=== PATIENT | male | born 1935 | race Hispanic/Latino ===

== ENCOUNTER 2018-05-15 16:06 | Emergency (ER) | payer BC, MEDICARE ==
[2018-05-15 16:15] VITALS: RESP 20
[2018-05-15 17:59] LABS: BASO % 0.6 % (0.0-2.0); EOS # 0.1 K/uL (0.0-0.7); EOS % 1.5 % (0.0-4.0); HEMOGLOBIN 13.7 g/dL (12.0-18.0); LYMPH # 2.4 K/uL (1.0-4.3); LYMPH % 32.9 % (20.0-40.0); MEAN CELL VOLUME 86.8 fL (80.0-94.0); MEAN CORPUSCULAR HEMOGLOBIN 29.7 pg (27.0-31.0); MEAN CORPUSCULAR HGB CONC 34.2 g/dL (33.0-37.0); MEAN PLATELET VOLUME 9.1 fL (7.2-11.7); MONO # 0.6 K/uL (0.0-0.8); MONO % 8.2 % (0.0-10.0); NEUT # 4.1 K/uL (1.8-7.0); NEUT % 56.8 % (50.0-75.0); RBC 4.62 Mil/uL (4.40-5.90); RED CELL DISTRIBUTION WIDTH 13.8 % (11.5-14.5); WHITE BLOOD COUNT 7.3 K/uL (4.8-10.8)
[2018-05-15 18:07] LABS: URINE BACTERIA OCC (<OCC); URINE BILIRUBIN NEGATIVE (NEGATIVE); URINE BLOOD 3+ (NEGATIVE); URINE CLARITY Hazy (Clear); URINE GLUCOSE (UA) NORMAL (Normal); URINE LEUKOCYTE ESTERASE NEG Leu/uL (Negative); URINE PROTEIN 2+ mg/dL (NEGATIVE); URINE UROBILINOGEN NORMAL mg/dL (0.2-1.0)
[2018-05-15 18:09] LABS: INR 1.1; PROTHROMBIN TIME 11.7 SECONDS (9.7-12.2)
[2018-05-15 18:10] LABS: URINE COLOR YELLOW (YELLOW)
[2018-05-15] MEDS ORDERED: Tmp-Smz 800 mg-160 mg DS Tab PO STA (18:28)
[2018-05-15 18:32] LABS: ALB/GLOB RATIO 1.7 (1.0-2.1); ALBUMIN 4.4 g/dL (3.5-5.0); ALT/SGPT 23 U/L (21-72); AST/SGOT 38 U/L (17-59); BLOOD UREA NITROGEN 24 mg/dL (9-20); CALCIUM 9.8 mg/dl (8.6-10.4); GFR NON-AFRICAN AMERICAN 58
--- NOTE | 2018-05-15 18:35 | C.PDOC ---
History Of Present Illness 82 year old with PMHx of prostate cancer at 2000, presents to the ED c/o hematuria that started today at 15:30. Patient had radiation done for his prostate cancer done by Dr. Fisher, patient has been in remission. Patient reports taking only aspirin and no other blood thinners. Patient stats the urine flow smoothly. Patient denies fever, chills, nausea, vomit, diarrhea, back pain, abdominal pain. Time Seen by Provider: 05/15/18 16:42 Chief Complaint (Nursing): Male Genitourinary History Per: Patient History/Exam Limitations: no limitations Onset/Duration Of Symptoms: Hrs (15:30) Current Symptoms Are (Timing): Still Present Quality Of Discomfort: "Pain" Associated Symptoms: Urinary Symptoms. denies: Nausea, Vomiting, Diarrhea Recent travel outside of the [place]: No Additional History Per: Patient Past Medical History Reviewed: Historical Data, Nursing Documentation, Vital Signs Vital Signs: Last Vital Signs Temp 98.7 F 05/15/18 16:09 Pulse 82 05/15/18 16:09 Resp 20 05/15/18 16:09 BP 183/75 H 05/15/18 16:09 Pulse Ox 98 05/15/18 16:09 - Medical History PMH: Hypercholesterolemia, Mitral Valve Prolapse Surgical History: No Surg Hx Family History: States: Unknown Family Hx - Social History Hx Alcohol Use: Yes Hx Substance Use: No - Immunization History Hx Influenza Vaccination: Yes (2019) Hx Pneumococcal Vaccination: Yes (2017) Review Of Systems Constitutional: Negative for: Fever, Chills Cardiovascular: Negative for: Chest Pain, Palpitations Respiratory: Negative for: Shortness of Breath Gastrointestinal: Negative for: Nausea, Vomiting, Abdominal Pain Genitourinary: Positive for: Hematuria. Negative for: Dysuria Musculoskeletal: Negative for: Back Pain Physical Exam - Physical Exam Appears: Non-toxic, No Acute Distress Skin: Normal Color, Warm, Dry Head: Atraumatic, Normacephalic Eye(s): bilateral: Normal Inspection Neck: Normal ROM, Supple Chest: Symmetrical Cardiovascular: Rhythm Regular Respiratory: Normal Breath Sounds, No Rales, No Rhonchi, No Wheezing Gastrointestinal/Abdominal: Soft, No Tenderness, No Guarding, No Rebound Extremity: Normal ROM, No Tenderness, No Swelling Neurological/Psych: Oriented x3, Normal Speech, Normal Cognition Gait: Steady ED Course And Treatment - Laboratory Results Result Diagrams: 05/15/18 17:55 05/15/18 17:55 Lab Results: PT 11.7 SECONDS (9.7-12.2) 05/15/18 17:55 INR 1.1 05/15/18 17:55 APTT 34 SECONDS (21-34) 05/15/18 17:55 Total Bilirubin 0.4 mg/dL (0.2-1.3) 05/15/18 17:55 AST 38 U/L (17-59) 05/15/18 17:55 ALT 23 U/L (21-72) 05/15/18 17:55 Alkaline Phosphatase 42 U/L (38-126) 05/15/18 17:55 Total Protein 7.0 g/dL (6.3-8.3) 05/15/18 17:55 Albumin 4.4 g/dL (3.5-5.0) 05/15/18 17:55 Globulin 2.6 gm/dL (2.2-3.9) 05/15/18 17:55 Albumin/Globulin Ratio 1.7 (1.0-2.1) 05/15/18 17:55 Urine Color Yellow (YELLOW) 05/15/18 17:55 Urine Clarity Hazy (Clear) 05/15/18 17:55 Urine pH 5.0 (5.0-8.0) 05/15/18 17:55 Ur Specific [place] 1.018 (1.003-1.030) 05/15/18 17:55 Urine Protein 2+ mg/dL (NEGATIVE) H 05/15/18 17:55 Urine Glucose (UA) Normal mg/dL (Normal) 05/15/18 17:55 Urine Ketones Negative mg/dL (NEGATIVE) 05/15/18 17:55 Urine Blood 3+ (NEGATIVE) H 05/15/18 17:55 Urine Nitrate Negative (NEGATIVE) 05/15/18 17:55 Urine Bilirubin Negative (NEGATIVE) 05/15/18 17:55 Urine Urobilinogen Normal mg/dL (0.2-1.0) 05/15/18 17:55 Ur Leukocyte Esterase Neg Cora/uL (Negative) 05/15/18 17:55 Urine WBC (Auto) 1 /hpf (0-5) 05/15/18 17:55 Urine RBC (Auto) 1386 /hpf (0-3) H 05/15/18 17:55 Urine Bacteria Occ (<OCC) H 05/15/18 17:55 O2 Sat by Pulse Oximetry: 98 (ON RA) Pulse Ox Interpretation: Normal Medical Decision Making Medical Decision Making: Assessment : Hematuria Plan: * Labs * Bactrim 1 tab PO * Urine culture * UA Called and left a message on Dr. Fisher's phone. Patient in no acute distress, stable for discharge was advised to follow up with Dr. Fisher on Friday for further evaluation . Disposition Counseled Patient/Family Regarding: Studies Performed, Diagnosis, Need For Followup, Rx Given - Disposition Referrals: Ivan Fisher MD [Staff Provider] - Disposition: HOME/ ROUTINE Disposition Time: 18:33 Condition: STABLE Additional Instructions: follow up with Dr. Fisher within 2 days call to make an appointment take medication as prescribed return to ER if symptoms worsens or progress Prescriptions: Sulfamethoxazole/Trimethoprim [Bactrim DS 800 mg-160 mg] 1 tab PO BID #14 tab Instructions: Blood in the Urine (Hematuria) in Adults Forms: [facility] ([place]), General Discharge Instructions - Clinical Impression Clinical Impression: Hematuria - Scribe Statement The provider has reviewed the documentation as recorded by the Scribe Jay Sellers All medical record entries made by the Scribe were at my direction and person ally dictated by me. I have reviewed the chart and agree that the record accurately reflects my personal performance of the history, physical exam, medical decision making, and the department course for this patient. I have also personally directed, reviewed, and agree with the discharge instructions and disposition.
[2018-05-15] MEDS ORDERED: Tmp-Smz 800 mg-160 mg DS Tab ONE (18:40)
[2018-05-15 19:00] VITALS: BP 157/73; PULSE 65; TEMP 98.5
[2018-05-15 20:13] VITALS: O2SAT 98
== END 2018-05-15 19:07 | disposition home or self-care (01) ==
LOC: C.ER 16:06
DX: R31.9 Hematuria, unspecified (principal)